=== PATIENT | male | born 1995 | race African-American/Black ===

== ENCOUNTER 2022-05-14 14:56 | Emergency (ER) | payer MEDICAID, OTHER ==
[~2022-05-14] VITALS: Ht 182.9 cm; Wt 86.0 kg
[2022-05-14 15:07] VITALS: BP 136/67
[2022-05-14] MEDS ORDERED: MUPI1OIN4 TP (16:52)
[2022-05-14] MEDS ORDERED: IBUP-2029 MT (16:52)
[2022-05-14] MEDS ORDERED: CEPH500C2 MT (16:52)
== END 2022-05-14 17:22 | disposition home or self-care (01) ==
LOC: ER 14:56
DX: L03.114 Cellulitis of left upper limb (principal)
CPT/HCPCS: 99283